=== PATIENT | male | born 1995 | race Caucasian/White ===

== ENCOUNTER 2020-10-20 15:56 | Emergency (ER) | payer BC, SELFPAY ==
[2020-10-20 16:00] VITALS: BP 151/79; PULSE 67; RESP 14; TEMP 37.1; O2SAT 100; BMI 18.6
--- NOTE | 2020-10-20 16:03 | DI.RAD.S_ITS ---
PROCEDURE: XR CHEST 2V INDICATIONS: shortness of breath TECHNIQUE: 2 views of the chest were acquired. COMPARISON: None. FINDINGS: Surgical changes and devices: None. Lungs and pleura: Lungs are clear. No pleural effusions or pneumothorax. Mediastinum: Mediastinal contours are normal. Heart size is normal. Bones and chest wall: No suspicious bony abnormalities. Soft tissues appear unremarkable. IMPRESSION: No acute cardiopulmonary pathology. Dictated by: Ean Lloyd M.D. on 10/20/2020 at 16:23 Approved by: Ean Lloyd M.D. on 10/20/2020 at 16:23
[2020-10-20 17:33] LABS: Add Manual Diff / Slide Review NO; Basophils Absolute Auto 0 /uL (0-100); Basophils Percent Auto 0.3 % (0-2); Eosinophils Absolute Auto 100 /uL (0-450); Eosinophils Percent Auto 0.9 % (2-4); Hematocrit 43.9 % (41-53); Hemoglobin 14.7 g/dL (13.5-17.5); Lymphocytes Absolute Auto 1200 /uL (1100-4500); Lymphocytes Percent Auto 18.3 % (25-40); Mean Corpuscular HGB Conc 33.5 % (30-36); Mean Corpuscular Hemoglobin 31.4 PG (26-34); Mean Corpuscular Volume 93.6 fL (80-100); Monocytes Absolute Auto 400 /uL (0-900); Monocytes Percent Auto 6.4 % (3-14); Neutrophils Absolute Auto 4700 /uL (1500-7000); Neutrophils Percent Auto 74.1 % (50-75); Platelet Count 199 X10^3/uL (150-400); Red Blood Cell Count 4.69 X10^6/uL (4.5-5.9); Red Cell Distribution Width 13.1 % (11.6-14.8); White Blood Cell Count 6.4 X10^3/uL (4.5-11.0)
[2020-10-20 17:52] LABS: Alanine Aminotransferase 21 IU/L (<50); Albumin 4.4 g/dL (3.5-5.0); Albumin Globulin Ratio 1.7 (1.0-2.8); Alkaline Phosphatase 46 U/L (38-126); Aspartate Aminotransferase 25 IU/L (17-59); BUN Creatinine Ratio 16.2 (6-22); Bilirubin Total 0.5 mg/dL (0.2-1.3); Blood Urea Nitrogen 12 mg/dL (9-20); Calcium 9.3 mg/dL (8.4-10.2); Carbon Dioxide 30 mmol/L (22-32); Chloride 102 mmol/L (98-107); Estimated Glomerular Filt Rate > 60.0 mL/min (>60); Globulin 2.6 g/dL (1.7-4.1); Glucose 130 mg/dL (70-100); HEMOLYSIS < 15 (0-50); Sodium 139 mmol/L (137-145)
[2020-10-20 18:17] LABS: D Dimer < 200 ng/mL (<230)
[2020-10-20 18:22] LABS: COVID19 -Nasal RAPID Negative (Negative)
[2020-10-20 18:35] VITALS: BP 132/78; PULSE 80; RESP 16; O2SAT 99
--- NOTE | 2020-10-20 18:47 | ED_ITS ---
HPI - SOB/Dyspnea <HEATH Thomas - Last Filed: 10/20/20 18:58> General Chief Complaint: Shortness of Breath/Dyspnea Stated Complaint: tourble breathing past 4 days Time Seen by Provider: 10/20/20 16:18 Source: patient Mode of arrival: Ambulatory Limitations: no limitations History of Present Illness HPI Narrative: The patient is a 25-year-old male who denies pertinent medical history of it is an active smoker who presents with a chief complaint of shortness of breath. He was tested for coronavirus yesterday which was negative. He denies any history of asthma, he does state that he traveled from [place] late last month and is quite stationary. He denies any chest pain, states he feels like he cannot get a deep breath. Denies any fevers muscle aches or chills. Denies any cough or congestion. Does admit to vaping profusely. Denies any chest pain. Related Data Allergies Allergy/AdvReac Type Severity Reaction Status Date / Time No Known Drug Allergies Allergy Verified 10/20/20 16:03 Review of Systems <HEATH Thomas - Last Filed: 10/20/20 18:58> Review of Systems Narrative: GENERAL: Denies chills, fatigue, malaise, fever, sweats. HEENT: Denies sinus pain, ear pain, sore throat, difficulty swallowing, dizziness. RESPIRATORY: See HPI CARDIOVASCULAR: Denies chest pain, palpitations, orthopnea, edema, GASTROINTESTINAL: Denies nausea, vomiting, abdominal pain, diarrhea, c onstipation, melena. : Denies dysuria, frequency, incontinence, hematuria, urinary retention. MUSCULOSKELETAL: denies weakness, joint pain, or bony pain SKIN: Denies rash, skin lesions, or other NEUROLOGIC: Denies weakness, headache, numbness, change in speech, confusion, seizures, incoordination. PSYCHIATRIC: No concerning psychosocial issues. 12 point review of systems is negative except for those stated above Patient History <HEATH Thomas - Last Filed: 10/20/20 18:58> tobacco type: vaping alcohol intake frequency: a few times a month Substance Use Type: marijuana Exam <HEATH Thomas - Last Filed: 10/20/20 18:58> Narrative Exam Narrative: GENERAL: This is a well-nourished, well-developed patient, in no acute distress HEAD: Atraumatic. Normocephalic. No temporal or scalp tenderness. EYES: Pupils equal round and reactive. Extraocular motions intact. No scleral icterus. No injection or drainage. ENT: Nose without bleeding, purulent drainage or septal hematoma. Wearing a mask Airway patent. NECK: Trachea midline. No JVD or lymphadenopathy. Supple, nontender, no meningeal signs. CARDIOVASCULAR: Regular rate and rhythm w RESPIRATORY: Clear to auscultation. Breath sounds equal bilaterally. No wheezes, rales, or rhonchi. Speaking full sentences. No accessory muscle use. Reclined on stretcher. BACK: Nontender without deformity or crepitance. No flank tenderness. NEURO: AOx3. SKIN: No rash or erythema on visible skin Initial Vital Signs Initial Vital Signs: Vital Signs Temperature 98.7 F 10/20/20 16:00 Pulse Rate 67 10/20/20 16:00 Respiratory Rate 14 10/20/20 16:00 Blood Pressure 151/79 H 10/20/20 16:00 Pulse Oximetry 100 10/20/20 16:00 <Nguyen Cazares DO - Last Filed: 10/27/20 23:23> Initial Vital Signs Initial Vital Signs: Vital Signs Temperature 98.7 F 10/20/20 16:00 Pulse Rate 67 10/20/20 16:00 Respiratory Rate 14 10/20/20 16:00 Blood Pressure 151/79 H 10/20/20 16:00 Pulse Oximetry 100 10/20/20 16:00 Scores <HEATH Thomas - Last Filed: 10/20/20 18:58> GCS Kimball coma scale eye opening: Spontaneous Hesham coma scale verbal response: Orientated Hesham coma scale motor response: Obey commands Hesham coma scale total score: 15 Course <HEATH Thomas - Last Filed: 10/20/20 18:58> Orders Ordered: ED Orders 10/20/20 16:03 XR chest 2V Stat RT Consult Eval and Treat Now 10/20/20 16:12 EKG-12 Lead Stat 10/20/20 17:17 COVID19 -Nasal swab/Pre-Proc Stat 10/20/20 17:27 Complete Blood Count AUTO DIFF Stat Comprehensive Metabolic Panel Stat D Dimer Stat Vital Signs Vital signs: Vital Signs - 8 hr 10/20/20 16:00 10/20/20 18:35 Temperature 98.7 F Pulse Rate 67 80 Respiratory Rate 14 16 Blood Pressure 151/79 H 132/78 Pulse Oximetry 100 99 <Nguyen Cazares DO - Last Filed: 10/27/20 23:23> Orders Ordered: ED Orders 10/20/20 16:03 XR chest 2V Stat RT Consult Eval and Treat Now 10/20/20 16:12 EKG-12 Lead Stat 10/20/20 17:17 COVID19 -Nasal swab/Pre-Proc Stat 10/20/20 17:27 Complete Blood Count AUTO DIFF Stat Comprehensive Metabolic Panel Stat D Dimer Stat Vital Signs Vital signs: Vital Signs - 8 hr 10/20/20 16:00 10/20/20 18:35 Temperature 98.7 F Pulse Rate 67 80 Respiratory Rate 14 16 Blood Pressure 151/79 H 132/78 Pulse Oximetry 100 99 MDM - SOB/Dyspnea <ANIKA Thomas-BC - Last Filed: 10/20/20 18:58> Lab Data Attestation: I reviewed the patient's lab results. Result diagrams: 10/20/20 17:27 10/20/20 17:27 Labs: Lab Results 10/20/20 10/20/20 10/20/20 Range/Units 17:17 17:27 17:27 WBC 6.4 (4.5-11.0) X10^3/uL RBC 4.69 (4.5-5.9) X10^6/uL Hgb 14.7 (13.5-17.5) g/dL Hct 43.9 (41-53) % MCV 93.6 (80-100) fL MCH 31.4 (26-34) PG MCHC 33.5 (30-36) % RDW 13.1 (11.6-14.8) % Plt Count 199 (150-400) X10^3/uL Neut % (Auto) 74.1 (50-75) % Lymph % (Auto) 18.3 L (25-40) % [place] % (Auto) 6.4 (3-14) % Eos % (Auto) 0.9 L (2-4) % Baso % (Auto) 0.3 (0-2) % Neut # (Auto) 4700 (3955-9184) /uL Lymph # (Auto) 1200 (0791-7971) /uL [place] # (Auto) 400 (0-900) /uL Eos # (Auto) 100 (0-450) /uL Baso # (Auto) 0 (0-100) /uL D-Dimer < 200 (<230) ng/mL Sodium (137-145) mmol/L Potassium (3.4-5.1) mmol/L Chloride (98-107) mmol/L Carbon Dioxide (22-32) mmol/L BUN (9-20) mg/dL Creatinine (0.66-1.25) mg/dL Estimated GFR (>60) mL/min BUN/Creatinine Ratio (6-22) Glucose (70-100) mg/dL Calcium (8.4-10.2) mg/dL Total Bilirubin (0.2-1.3) mg/dL AST (17-59) IU/L ALT (<50) IU/L Alkaline Phosphatase (38-126) U/L Total Protein (6.3-8.2) g/dL Albumin (3.5-5.0) g/dL Globulin (1.7-4.1) g/dL Albumin/Globulin Ratio (1.0-2.8) SARS-CoV-2 (PCR) Negative (Negative) 10/20/20 Range/Units 17:27 WBC (4.5-11.0) X10^3/uL RBC (4.5-5.9) X10^6/uL Hgb (13.5-17.5) g/dL Hct (41-53) % MCV (80-100) fL MCH (26-34) PG MCHC (30-36) % RDW (11.6-14.8) % Plt Count (150-400) X10^3/uL Neut % (Auto) (50-75) % Lymph % (Auto) (25-40) % [place] % (Auto) (3-14) % Eos % (Auto) (2-4) % Baso % (Auto) (0-2) % Neut # (Auto) (3986-5247) /uL Lymph # (Auto) (3170-2679) /uL [place] # (Auto) (0-900) /uL Eos # (Auto) (0-450) /uL Baso # (Auto) (0-100) /uL D-Dimer (<230) ng/mL Sodium 139 (137-145) mmol/L Potassium 4.0 (3.4-5.1) mmol/L Chloride 102 (98-107) mmol/L Carbon Dioxide 30 (22-32) mmol/L BUN 12 (9-20) mg/dL Creatinine 0.74 (0.66-1.25) mg/dL Estimated GFR > 60.0 (>60) mL/min BUN/Creatinine Ratio 16.2 (6-22) Glucose 130 H (70-100) mg/dL Calcium 9.3 (8.4-10.2) mg/dL Total Bilirubin 0.5 (0.2-1.3) mg/dL AST 25 (17-59) IU/L ALT 21 (<50) IU/L Alkaline Phosphatase 46 (38-126) U/L Total Protein 7.0 (6.3-8.2) g/dL Albumin 4.4 (3.5-5.0) g/dL Globulin 2.6 (1.7-4.1) g/dL Albumin/Globulin Ratio 1.7 (1.0-2.8) SARS-CoV-2 (PCR) (Negative) Imaging Data Chest x-ray: Radiologist's Impression: [facility] [place] [id number] ReportSigned Patient: Evangelist Rosales II WayneMR#: [id number]: 1995Acct:[id number]/Sex: 25 / MDate of Service: 10/20/20Loc: EDAccession Number: [id number] Procedure: XR chest 2V Ordering Provider: Nguyen Cazares D.O. PROCEDURE: XR CHEST 2V INDICATIONS: shortness of breath TECHNIQUE: 2 views of the chest were acquired. COMPARISON: None. FINDINGS: Surgical changes and devices: None. Lungs and pleura: Lungs are clear. No pleural effusions or pneumothorax. Mediastinum: Mediastinal contours are normal. Heart size is normal. Bones and chest wall: No suspicious bony abnormalities. Soft tissues appear unremarkable. IMPRESSION: No acute cardiopulmonary pathology. Dictated by: Ean Lloyd M.D. on 10/20/2020 at 16:23 Approved by: Ean Lloyd M.D. on 10/20/2020 at 16:23 [facility] Narrative Medical decision making narrative: The patient is a 25-year-old male who presents with a chief complaint of shortness of breath. His exam is overall benign. He is in no acute distress, vital signs are stable, chest x-ray is no acute findings. Respiratory therapist evaluate him and states that his exam is within normal limits. Given his recent travel, did get basic lab work including a D-dimer which was negative. I discussed at length that he needs to stop vaping. Discussed at length the importance of following up with primary care provider as well as coming back to the ER for acute concerns. Patient has no questions or concerns upon discharge and states understanding return precautions as well as follow-up care. <Nguyen Cazares, - Last Filed: 10/27/20 23:23> Lab Data Labs: Lab Results 10/20/20 10/20/20 10/20/20 Range/Units 17:17 17:27 17:27 WBC 6.4 (4.5-11.0) X10^3/uL RBC 4.69 (4.5-5.9) X10^6/uL Hgb 14.7 (13.5-17.5) g/dL Hct 43.9 (41-53) % MCV 93.6 (80-100) fL MCH 31.4 (26-34) PG MCHC 33.5 (30-36) % RDW 13.1 (11.6-14.8) % Plt Count 199 (150-400) X10^3/uL Neut % (Auto) 74.1 (50-75) % Lymph % (Auto) 18.3 L (25-40) % [place] % (Auto) 6.4 (3-14) % Eos % (Auto) 0.9 L (2-4) % Baso % (Auto) 0.3 (0-2) % Neut # (Auto) 4700 (8758-1687) /uL Lymph # (Auto) 1200 (1468-8709) /uL [place] # (Auto) 400 (0-900) /uL Eos # (Auto) 100 (0-450) /uL Baso # (Auto) 0 (0-100) /uL D-Dimer < 200 (<230) ng/mL Sodium (137-145) mmol/L Potassium (3.4-5.1) mmol/L Chloride (98-107) mmol/L Carbon Dioxide (22-32) mmol/L BUN (9-20) mg/dL Creatinine (0.66-1.25) mg/dL Estimated GFR (>60) mL/min BUN/Creatinine Ratio (6-22) Glucose (70-100) mg/dL Calcium (8.4-10.2) mg/dL Total Bilirubin (0.2-1.3) mg/dL AST (17-59) IU/L ALT (<50) IU/L Alkaline Phosphatase (38-126) U/L Total Protein (6.3-8.2) g/dL Albumin (3.5-5.0) g/dL Globulin (1.7-4.1) g/dL Albumin/Globulin Ratio (1.0-2.8) SARS-CoV-2 (PCR) Negative (Negative) 10/20/20 Range/Units 17:27 WBC (4.5-11.0) X10^3/uL RBC (4.5-5.9) X10^6/uL Hgb (13.5-17.5) g/dL Hct (41-53) % MCV (80-100) fL MCH (26-34) PG MCHC (30-36) % RDW (11.6-14.8) % Plt Count (150-400) X10^3/uL Neut % (Auto) (50-75) % Lymph % (Auto) (25-40) % [place] % (Auto) (3-14) % Eos % (Auto) (2-4) % Baso % (Auto) (0-2) % Neut # (Auto) (4978-9349) /uL Lymph # (Auto) (7720-5601) /uL [place] # (Auto) (0-900) /uL Eos # (Auto) (0-450) /uL Baso # (Auto) (0-100) /uL D-Dimer (<230) ng/mL Sodium 139 (137-145) mmol/L Potassium 4.0 (3.4-5.1) mmol/L Chloride 102 (98-107) mmol/L Carbon Dioxide 30 (22-32) mmol/L BUN 12 (9-20) mg/dL Creatinine 0.74 (0.66-1.25) mg/dL Estimated GFR > 60.0 (>60) mL/min BUN/Creatinine Ratio 16.2 (6-22) Glucose 130 H (70-100) mg/dL Calcium 9.3 (8.4-10.2) mg/dL Total Bilirubin 0.5 (0.2-1.3) mg/dL AST 25 (17-59) IU/L ALT 21 (<50) IU/L Alkaline Phosphatase 46 (38-126) U/L Total Protein 7.0 (6.3-8.2) g/dL Albumin 4.4 (3.5-5.0) g/dL Globulin 2.6 (1.7-4.1) g/dL Albumin/Globulin Ratio 1.7 (1.0-2.8) SARS-CoV-2 (PCR) (Negative) Discharge Plan Departure Patient Disposition: Home Clinical Impression: Breath shortness Instructions: DI for Shortness of Breath, How to Manage Shortness of Breath Activity Restrictions/Additional Instructions: Thank you for trusting us with your care today. As discussed, your lab work was reassuring, your x-ray has no acute findings and you tested negative for coronavirus Please follow-up with primary care provider. I have given you contact informa tion to the [facility] health resource economist, who can help you find a PCP in the area accepting new patients. However I think it is most important to get a primary care provider that you are willing to see, and it might be best to get 1 where you live Please come back to emergency department for any acute concerns. As discussed, please stop vaping. this might be causing your shortness of breath. Vaping is very dangerous and bad for your lungs. Referrals: [facility] [Outside] <Nguyen Cazares DO - Last Filed: 10/27/20 23:23> Cosign ED Attending Amilcar Attestation: I was immediately available in the department for consultation. Documentation has been reviewed. I agree with assessment and plan.
== END 2020-10-20 18:54 | disposition home or self-care (01) ==
PROVIDERS: Emergency Provider Nurse Practitioner Family
DX: R06.02 Shortness of breath (principal); Z20.822 Contact with and (suspected) exposure to COVID-19
CPT/HCPCS: 36415; 71046; 80053; 85025; 85379; 87635; 93005; 93010; 99283; 99284; C9803

== ENCOUNTER 2025-02-21 10:18 | Emergency (ER) | payer MEDICAID, SELFPAY ==
[2025-02-21 10:22] VITALS: BP 120/57; PULSE 81; RESP 18; TEMP 37; O2SAT 97
[2025-02-21] MEDS: ONDANSETRON 4 MG ODT PO (10:29)
[2025-02-21 11:10] LABS: Culture Indicated Urine Cult Not Indicated; Ictotest Urine Negative (Negative)
[2025-02-21 11:13] LABS: Influenza A - CEPHEID Flu A NEGATIVE (NEGATIVE); Influenza B - CEPHEID Flu B NEGATIVE (NEGATIVE)
--- NOTE | 2025-02-21 11:51 | ED_ITS ---
HPI - Nausea/Vomiting/Diarrhea <Martha Amaya PA-C - Last Filed: 02/21/25 14:54> General Chief complaint: Nausea/Vomiting/Diarrhea Stated complaint: nausea, shakes, feeling terrible Time Seen by Provider: 02/21/25 11:21 Source: patient Mode of arrival: Ambulatory History of Present Illness HPI Narrative: Mr. Rosales is a pleasant 29-year-old male with no reported past medical history who presents to the emergency department for nausea, vomiting, chills x1 day. He is accompanied by his mom and his uncle. Patient states last night he started feeling very fatigued and like he was becoming sick, when he woke up this morning he felt nauseous and had nonbloody vomiting which prompted his ER visit. At this time he is received Zofran and states he is feeling slightly better, has been able to keep down some tea. He denies any pain including headache, neck pain, chest pain, abdominal pain, dysuria. Denies cough, sore throat, ear pain. No diarrhea or constipation, reports a normal nonbloody bowel movement yesterday. He does smoke marijuana, denies any other smoking. No medication allergies. Related Data Previous Rx's ?Medication ?Instructions ?Recorded ondansetron 4 mg disintegrating 4 mg PO Q8H PRN nausea and 02/21/25 tablet vomiting #14 tabs Allergies Allergy/AdvReac Type Severity Reaction Status Date / Time No Known Drug Allergies Allergy Verified 02/21/25 10:22 Review of Systems <Martha Amaya PA-C - Last Filed: 02/21/25 14:54> Review of Systems ROS Unobtainable: All systems reviewed & are unremarkable except as noted in HPI and below Patient History <Martha Amaya PA-C - Last Filed: 02/21/25 14:54> Social History Smoking Status: Former smoker Smoking Status: Former smoker tobacco type: vaping alcohol intake frequency: a few times a month Exam <Martha Amaya PA-C - Last Filed: 02/21/25 14:54> Narrative Exam Narrative: GENERAL: 29 year old patient appears stated age. Well-developed patient, in no acute distress, appears fatigued. HEAD: Atraumatic. Normocephalic. EYES: No scleral icterus. No injection or drainage. ENT: Nose without bleeding, purulent drainage. NECK: Trachea midline. Cervical ROM intact. CARDIOVASCULAR: Regular rate and rhythm. RESPIRATORY: ?Nonlabored respirations. ?Speaking in clear, full sentences. ?Clear to auscultation. Breath sounds equal bilaterally. No wheezes, rales, or rhonchi. ? GASTROINTESTINAL: Abdomen soft, non-tender, nondistended. BS present. NEURO: AOx3. ?Clear speech. ?Moves all 4 extremities appropriately. SKIN: No rash or erythema of visible areas Initial Vital Signs Initial Vital Signs: Vital Signs Temperature 98.6 F 02/21/25 10:22 Pulse Rate 81 02/21/25 10:22 Respiratory Rate 18 02/21/25 10:22 Blood Pressure 120/57 L 02/21/25 10:22 Pulse Oximetry 97 02/21/25 10:22 Oxygen Delivery Method Room Air 02/21/25 10:22 <Chyna Evans DO - Last Filed: 02/21/25 15:41> Initial Vital Signs Initial Vital Signs: Vital Signs Temperature 98.6 F 02/21/25 10:22 Pulse Rate 81 02/21/25 10:22 Respiratory Rate 18 02/21/25 10:22 Blood Pressure 120/57 L 02/21/25 10:22 Pulse Oximetry 97 02/21/25 10:22 Oxygen Delivery Method Room Air 02/21/25 10:22 Course <Martha Amaya PA-C - Last Filed: 02/21/25 14:54> Orders Ordered: ED Orders 02/21/25 10:25 Ictotest Urine Stat Urine Microscopic Stat 02/21/25 10:30 Covid-19 + FLU A/B + RSV - PCR Stat 02/21/25 12:41 CBC Auto Diff [Complete Blood Count AUTO DIFF] Stat CMP [Comprehensive Metabolic Panel] Stat Lipase Stat MG [Magnesium] Stat Discontinued Medications Sodium Chloride (Normal Saline 0.9%) 1,000 mls @ 1,000 mls/hr IV BOLUS ONE Stop: 02/21/25 13:32 Last Infusion: 02/21/25 14:30 Dose: Infused Documented By: Admin: 02/21/25 13:00 Dose: 1,000 mls/hr Documented By: SHAMA Acetaminophen (Ofirmev) 1,000 mg in 100 mls @ 400 mls/hr IV NOW ONE Stop: 02/21/25 12:47 Last Infusion: 02/21/25 13:27 Dose: Infused Documented By: Admin: 02/21/25 13:00 Dose: 400 mls/hr Documented By: SHAMA Ondansetron HCl (Ondansetron 4 Mg Odt) 4 mg PO NOW PRN PRN Reason: Nausea And Vomiting Last Admin: 02/21/25 10:29 Dose: 4 mg Documented By: RACHNA Vital Signs Vital signs: Vital Signs - 8 hr 02/21/25 10:22 02/21/25 13:21 02/21/25 13:29 Temperature 98.6 F 97.9 F 97.9 F Pulse Rate 81 58 L Respiratory Rate 18 16 Blood Pressure 120/57 L 106/56 L Pulse Oximetry 97 100 Oxygen Delivery Method Room Air Room Air 02/21/25 14:38 Temperature 97.8 F Pulse Rate 79 Respiratory Rate 16 Blood Pressure 117/66 Pulse Oximetry 100 Oxygen Delivery Method Room Air <Chyna Evans DO - Last Filed: 02/21/25 15:41> Orders Ordered: ED Orders 02/21/25 10:25 Ictotest Urine Stat Urine Microscopic Stat 02/21/25 10:30 Covid-19 + FLU A/B + RSV - PCR Stat 02/21/25 12:41 CBC Auto Diff [Complete Blood Count AUTO DIFF] Stat CMP [Comprehensive Metabolic Panel] Stat Lipase Stat MG [Magnesium] Stat Discontinued Medications Sodium Chloride (Normal Saline 0.9%) 1,000 mls @ 1,000 mls/hr IV BOLUS ONE Stop: 02/21/25 13:32 Last Infusion: 02/21/25 14:30 Dose: Infused Documented By: Admin: 02/21/25 13:00 Dose: 1,000 mls/hr Documented By: SHAMA Acetaminophen (Ofirmev) 1,000 mg in 100 mls @ 400 mls/hr IV NOW ONE Stop: 02/21/25 12:47 Last Infusion: 02/21/25 13:27 Dose: Infused Documented By: Admin: 02/21/25 13:00 Dose: 400 mls/hr Documented By: SHAMA Ondansetron HCl (Ondansetron 4 Mg Odt) 4 mg PO NOW PRN PRN Reason: Nausea And Vomiting Last Admin: 02/21/25 10:29 Dose: 4 mg Documented By: RACHNA Vital Signs Vital signs: Vital Signs - 8 hr 02/21/25 10:22 02/21/25 13:21 02/21/25 13:29 Temperature 98.6 F 97.9 F 97.9 F Pulse Rate 81 58 L Respiratory Rate 18 16 Blood Pressure 120/57 L 106/56 L Pulse Oximetry 97 100 Oxygen Delivery Method Room Air Room Air 02/21/25 14:38 Temperature 97.8 F Pulse Rate 79 Respiratory Rate 16 Blood Pressure 117/66 Pulse Oximetry 100 Oxygen Delivery Method Room Air MDM - Nausea/Vomiting/Diarrhea <Martha Amaya PA-C - Last Filed: 02/21/25 14:54> Medical Records Attestation: I reviewed the patient's medical records. Lab Data 02/21/25 12:41 02/21/25 12:41 Labs: Lab Results 02/21/25 02/21/25 02/21/25 Range/Units 10: 10:30 12:41 WBC 5.7 (4.5-11.0) X10^3/uL RBC 4.74 (4.5-5.9) X10^6/uL Hgb 15.1 (13.5-17.5) g/dL Hct 43.8 (41-53) % MCV 92.3 (80-100) fL MCH 31.9 (26-34) PG MCHC 34.6 (30-36) % RDW 13.1 (11.6-14.8) % Plt Count 227 (150-400) X10^3/uL Neut % (Auto) 76.6 H (50-75) % Lymph % (Auto) 16.6 L (25-40) % Wayne % (Auto) 5.8 (3-14) % Eos % (Auto) 0.9 L (2-4) % Baso % (Auto) 0.1 (0-2) % Neut # (Auto) 4400 (5087-1625) /uL Lymph # (Auto) 900 L (1840-0941) /uL Wayne # (Auto) 300 (0-900) /uL Eos # (Auto) 0 (0-450) /uL Baso # (Auto) 0 (0-100) /uL Sodium 136 L (137-145) mmol/L Potassium 4.5 (3.4-5.1) mmol/L Chloride 101 (98-107) mmol/L Carbon Dioxide 28 (22-32) mmol/L BUN 9 (9-20) mg/dL Creatinine 0.81 (0.66-1.25) mg/dL Estimated GFR > 60 (>60) mL/min BUN/Creatinine Ratio 11.1 (6-22) Glucose 102 H (70-99) mg/dL Calcium 9.5 (8.4-10.2) mg/dL Magnesium 2.3 (1.6-2.3) mg/dL Total Bilirubin 0.9 (0.2-1.3) mg/dL AST 37 (17-59) IU/L ALT 35 (<50) IU/L Alkaline Phosphatase 62 (38-126) U/L Total Protein 7.9 (6.3-8.2) g/dL Albumin 4.7 (3.5-5.0) g/dL Globulin 3.2 (1.7-4.1) g/dL Albumin/Globulin Ratio 1.5 (1.0-2.8) Lipase 63 (23-300) U/L Ur Bilirubin Confirm Negative (Negative) Urine RBC None seen (0-5/HPF) Urine WBC None seen (0-5/HPF) Ur Squamous Epith Cells 0-1 /hpf (0-5/HPF) Urine Bacteria None seen (None) Ur Culture Indicated? Cult not indicated Vol Urine Centrifuged 10ml (spun) SARS-CoV-2 (PCR) Negative (Negative) Influenza A (RT-PCR) Flu a negative (NEGATIVE) Influenza B (RT-PCR) Flu b negative (NEGATIVE) RSV (PCR) Negative (Negative) Urine Dip Bedside Urine Glucose Negative Bedside Urine Bilirubin + 1 Bedside Urine Ketone - Negative Urine Specific [place] 1.015 Bedside Urine Occult Blood - Negative Bedside Urine pH 6.5 Bedside Urine Protein + 30 Bedside Urine Urobilinogen - Negative Bedside Urine Nitrite - Negative Bedside Urine Leukocytes - Negative Esterase MDM Narrative Medical decision making narrative: 29-year-old male with no reported past medical history who presents to the emergency department for nausea, vomiting, chills x1 day. Differential diagnosis includes but isn't limited to gastroenteritis, viral syndrome, dehydration, UTI, etc. On exam patient is in no acute distress, nontoxic appearing, vital signs appropriate. He is visibly fatigued. He already received Zofran in triage prior to my evaluation and reports improvement nausea, no subsequent vomiting, has tolerated small amount of oral tea. Abdomen is soft and nontender with no rebound or guarding, normal bowel sounds. Point of care urinalysis is negative for infection or ketones, viral swab pending. At this time patient feels like he can try to eat/drink, we will p.o. challenge then reassess. Patient continued feeling unwell despite oral Zofran, we will obtain labs and treat with fluids and Tylenol. Labs very reassuring with normal WBC 5.7, hemoglobin 15.1, sodium 136, potassium 4.5, good renal function BUN 9 creatinine 0.81. Glucose 102. Magnesium 2.3. Normal lipase LFTs. Negative viral swab. Patient feeling better, tolerating p.o., no subsequent episodes of vomiting in the ED. This time suspect early viral syndrome, recommended supportive care, Pedialyte, rest, Zofran, strict ER return precautions for any pain or new or worsening symptoms. Patient, his mom and uncle verbalized understanding of all information agreeable with the plan. Patient is ambulatory and stable for discharge home. <Chyna Evans, DO - Last Filed: 02/21/25 15:41> Lab Data Labs: Lab Results 02/21/25 02/21/25 02/21/25 Range/Units 10:25 10:30 12:41 WBC 5.7 (4.5-11.0) X10^3/uL RBC 4.74 (4.5-5.9) X10^6/uL Hgb 15.1 (13.5-17.5) g/dL Hct 43.8 (41-53) % MCV 92.3 (80-100) fL MCH 31.9 (26-34) PG MCHC 34.6 (30-36) % RDW 13.1 (11.6-14.8) % Plt Count 227 (150-400) X10^3/uL Neut % (Auto) 76.6 H (50-75) % Lymph % (Auto) 16.6 L (25-40) % Wayne % (Auto) 5.8 (3-14) % Eos % (Auto) 0.9 L (2-4) % Baso % (Auto) 0.1 (0-2) % Neut # (Auto) 4400 (6558-3304) /uL Lymph # (Auto) 900 L (7850-3666) /uL Wayne # (Auto) 300 (0-900) /uL Eos # (Auto) 0 (0-450) /uL Baso # (Auto) 0 (0-100) /uL Sodium 136 L (137-145) mmol/L Potassium 4.5 (3.4-5.1) mmol/L Chloride 101 (98-107) mmol/L Carbon Dioxide 28 (22-32) mmol/L BUN 9 (9-20) mg/dL Creatinine 0.81 (0.66-1.25) mg/dL Estimated GFR > 60 (>60) mL/min BUN/Creatinine Ratio 11.1 (6-22) Glucose 102 H (70-99) mg/dL Calcium 9.5 (8.4-10.2) mg/dL Magnesium 2.3 (1.6-2.3) mg/dL Total Bilirubin 0.9 (0.2-1.3) mg/dL AST 37 (17-59) IU/L ALT 35 (<50) IU/L Alkaline Phosphatase 62 (38-126) U/L Total Protein 7.9 (6.3-8.2) g/dL Albumin 4.7 (3.5-5.0) g/dL Globulin 3.2 (1.7-4.1) g/dL Albumin/Globulin Ratio 1.5 (1.0-2.8) Lipase 63 (23-300) U/L Ur Bilirubin Confirm Negative (Negative) Urine RBC None seen (0-5/HPF) Urine WBC None seen (0-5/HPF) Ur Squamous Epith Cells 0-1 /hpf (0-5/HPF) Urine Bacteria None seen (None) Ur Culture Indicated? Cult not indicated Vol Urine Centrifuged 10ml (spun) SARS-CoV-2 (PCR) Negative (Negative) Influenza A (RT-PCR) Flu a negative (NEGATIVE) Influenza B (RT-PCR) Flu b negative (NEGATIVE) RSV (PCR) Negative (Negative) Urine Dip Bedside Urine Glucose Negative Bedside Urine Bilirubin + 1 Bedside Urine Ketone - Negative Urine Specific [place] 1.015 Bedside Urine Occult Blood - Negative Bedside Urine pH 6.5 Bedside Urine Protein + 30 Bedside Urine Urobilinogen - Negative Bedside Urine Nitrite - Negative Bedside Urine Leukocytes - Negative Esterase Discharge Plan Departure Patient Disposition: Home Clinical Impression: Nausea and vomiting Qualifiers: Vomiting type: unspecified Qualified Code(s): R11.2 - Nausea with vomiting, unspecified Instructions: DI for Vomiting -- Adult Activity Restrictions/Additional Instructions: Dear Mr. Rosales, Thank you for coming to the emergency department. Today you were evaluated for nausea and vomiting. Your viral swab was negative and your lab work was overall reassuring. At this time I want you to eat a bland diet, rest, increase hydration with Pedialyte or Gatorade or other electrolyte beverage, and use the prescribed nausea medicine as needed. Please return to the emergency department immediately if you develop pain, persistent symptoms new or worsening symptoms or any other concerns. Please follow up with your primary care doctor within the next 2-3 days for ER follow-up. (If you do not have a PCP you can call [phone]. ?to schedule an appointment with an [facility] Primary Care Provider) IF YOU DEVELOP ANY NEW OR WORSENING SYMPTOMS, RETURN TO THE ER! Please read the attached instructions, they highlight more specific treatments and interventions for you at home. Thank you for letting me participate in your care, Martha Amaya PA-C Prescriptions: New ondansetron 4 mg tablet,disintegrating 4 mg PO Q8H PRN (Reason: nausea and vomiting) Qty: 14 0RF Stand Alone Forms: Patient Portal/API, Work Release Note ED Sign-out <Chyna Evans, - Last Filed: 02/21/25 15:41> Cosign ED Attending Amilcar Attestation: I was immediately available in the department for consultation.
[2025-02-21 12:16] LABS: COVID-19 CEPHEID 4-PLEX PCR Negative (Negative)
[2025-02-21 12:56] LABS: Add Manual Diff / Slide Review NO; Hematocrit 43.8 % (41-53); Hemoglobin 15.1 g/dL (13.5-17.5); Lymphocytes Absolute Auto 900 /uL (1100-4500); Mean Corpuscular HGB Conc 34.6 % (30-36); Mean Corpuscular Hemoglobin 31.9 PG (26-34); Mean Corpuscular Volume 92.3 fL (80-100); Platelet Count 227 X10^3/uL (150-400)
[2025-02-21] MEDS: SODIUM CHLORIDE 0.9% 1,000 ML 1000 ML IV (13:00)
[2025-02-21] MEDS: ACETAMINOPHEN IV 1,000 MG/100 ML VIAL 400 MG IV (13:00)
[2025-02-21 13:07] LABS: Alanine Aminotransferase 35 IU/L (<50); Albumin 4.7 g/dL (3.5-5.0); Albumin Globulin Ratio 1.5 (1.0-2.8); Alkaline Phosphatase 62 U/L (38-126); Blood Urea Nitrogen 9 mg/dL (9-20); Calcium 9.5 mg/dL (8.4-10.2); Carbon Dioxide 28 mmol/L (22-32); Chloride 101 mmol/L (98-107); Estimated Glomerular Filt Rate > 60 mL/min (>60); Globulin 3.2 g/dL (1.7-4.1); Glucose 102 mg/dL (70-99); HEMOLYSIS 18 (0-50); Lipase 63 U/L (23-300); Magnesium 2.3 mg/dL (1.6-2.3); Potassium 4.5 mmol/L (3.4-5.1); Sodium 136 mmol/L (137-145); Total Protein 7.9 g/dL (6.3-8.2)
[2025-02-21 13:21] VITALS: BP 106/56; PULSE 58; RESP 16; TEMP 36.6; O2SAT 100
[2025-02-21 13:29] VITALS: TEMP 36.6
[2025-02-21 14:38] VITALS: BP 117/66; PULSE 79; RESP 16; TEMP 36.6; O2SAT 100
== END 2025-02-21 14:36 | disposition home or self-care (01) ==
PROVIDERS: Emergency Medicine; Emergency Provider Physician Assistant
DX: R11.2 Nausea with vomiting, unspecified (principal); Z87.891 Personal history of nicotine dependence
CPT/HCPCS: 36415; 80053; 81003; 81015; 83690; 83735; 85025; 87637; 96361; 96365; 99284; J0131